=== PATIENT | male | born 1945 | race Caucasian/White ===

== ENCOUNTER → 2016-05-06 | Outpatient (CLI) | payer OTHER | LOC: FIMAGING 15:50 | PROVIDERS: ATTEND Neurological Surgery | DX: M54.5 Low back pain (principal); M54.16 Radiculopathy, lumbar region; M48.06 Spinal stenosis, lumbar region; M51.36 Other intervertebral disc degeneration, lumbar region; M12.9 Arthropathy, unspecified ==

== ENCOUNTER 2016-07-22 05:51 | Inpatient (IN) | payer OTHER ==
[2016-07-01 10:40] LABS: % IMMATURE GRANULYOCYTES 0.3 % (0.0-1.1); ABSOLUTE IMMATURE GRANULOCYTES 0.02 10^3/uL (0.00-0.10); ADD DIFF? NO; ADD MORPH? NO; ADD SCAN? NO; ATYPICAL LYMPHOCYTE FLAG 0 (0-99); FRAGMENT RBC FLAG 0 (0-99); HEMATOCRIT 47.6 % (40.0-51.0); HEMOGLOBIN 16.1 g/dL (13.7-17.5); LEFT SHIFT FLG 0 (0-99); LIPEMIA HEMOLYSIS FLAG 90 (0-99); MEAN CELL HEMOGLOBIN 30.8 pg (27.9-34.1); MEAN CELL HEMOGLOBIN CONCENTR. 33.8 g/dL (32.4-36.7); PLATELET CLUMPS FLAG 0 (0-99); PLATELET COUNT 253 10^3/uL (150-400); RED BLOOD CELL COUNT 5.23 10^6/uL (4.40-6.38); RED CELL DISTRIBUTION WIDTH 13.3 % (11.5-15.2)
[2016-07-22] MEDS ORDERED: LIDOCAINE 1% 2 ML INJ ONE (05:54)
[2016-07-22] MEDS ORDERED: ceFAZolin 2 GM/DEXTROSE 100 ML IV ONE (06:00)
[2016-07-22] MEDS ORDERED: CHLORHEXIDINE GLUC HIBICLENS 118 ML BTL TP ONE (06:00)
[2016-07-22] MEDS ORDERED: ONDANSETRON 4 MG/2 ML VIAL IVP PRN (07:15)
[2016-07-22] MEDS ORDERED: diphenhydrAMINE 25 MG CAP PO PRN (07:15)
[2016-07-22] MEDS ORDERED: BUPIVACAINE/EPI 0.25% 30 ML SDV ONE (07:15)
[2016-07-22] MEDS ORDERED: NS W/ 20 KCl/L 1,000 ML IV SCH (07:15)
[2016-07-22] MEDS ORDERED: NALOXONE HCL 0.4 MG/ML INJ IVP PRN (07:15)
[2016-07-22] MEDS ORDERED: ACETAMINOPHEN 325 MG TAB PO PRN (07:15)
[2016-07-22] MEDS ORDERED: MAGNESIUM HYDROXIDE 30 ML UDCUP PO PRN (07:15)
[2016-07-22] MEDS ORDERED: BACITRACIN 50,000 UNITS/10 ML SYR IRR ONE (07:15)
[2016-07-22] MEDS ORDERED: ONDANSETRON DISINTEGRATING 4 MG TAB PO PRN (07:15)
[2016-07-22] MEDS ORDERED: HYDROmorphONE/DILAUDID 6 MG/30 ML PCA IV PRN (07:15)
[2016-07-22] MEDS ORDERED: BISACODYL 10 MG SUPP PR PRN (07:15)
[2016-07-22] MEDS ORDERED: DIAZEPAM 10 MG/2 ML SYR IVP PRN (07:15)
[2016-07-22] MEDS ORDERED: oxyCODONE IR 5 MG TAB PO PRN (07:15)
[2016-07-22] MEDS ORDERED: THROMBIN (BOVINE) 5,000 UNIT VIAL TP ONE (07:15)
[2016-07-22] MEDS ORDERED: TEMAZEPAM 15 MG CAP PO PRN (07:15)
[2016-07-22] MEDS ORDERED: HYDROmorphONE/DILAUDID 1 MG/ML SYR IVP PRN (07:15)
[2016-07-22] MEDS ORDERED: LACTULOSE 20 GM/30 ML UDCUP PO PRN (07:15)
[2016-07-22] MEDS ORDERED: POLYETHYLENE GLYCOL 3350 17 GM PKT PO PRN (07:15)
[2016-07-22] MEDS ORDERED: PROPOFOL/EMULSION 500 MG/50 ML BOTTLE IV ONE ×2 (07:19→09:42)
[2016-07-22] MEDS ORDERED: fentaNYL 100 MCG/2 ML INJ ONE ×3 (07:19→12:01)
[2016-07-22] MEDS ORDERED: REMIFENTANIL HCL 1 MG VIAL ONE ×2 (07:19→09:42)
[2016-07-22] MEDS ORDERED: DEXAMETHASONE 4 MG/ML VIAL ONE ×2 (07:22)
[2016-07-22] MEDS ORDERED: ROCURONIUM 50 MG/5 ML VIAL ONE (07:22)
[2016-07-22] MEDS ORDERED: MIDAZOLAM 2 MG/2 ML VIAL ONE (07:26)
[2016-07-22] MEDS ORDERED: LIDOCAINE 2% 100 MG/5 ML SYR ONE (07:36)
[2016-07-22] MEDS ORDERED: ALBUMIN 5% 250 ML BOTTLE IV ONE ×2 (07:46)
[2016-07-22] MEDS ORDERED: HYDROmorphONE/DILAUDID 2 MG/ML INJ ONE (10:44)
[2016-07-22] MEDS ORDERED: ONDANSETRON 4 MG/2 ML VIAL ONE (11:14)
[2016-07-22] MEDS ORDERED: HYDROmorphONE/DILAUDID 1 MG/ML SYR ONE (12:01)
--- NOTE | 2016-07-22 12:36 | SOAPPROG ---
SOAP Progress Note Assessment/Plan: Post Op Visit: S: Awake and alert. Pt with expected lower back pain O: AFVSS/PERRLA/EOMI no droop CN 2-12 grossly intact 5/5 BUE/BLE = except right EHL at 4+/5 +cms/nv intact x [address] and working A/P: 71 yo male that is s/p TLIF at L4/5 and L5/S1 -orders in place -call with any questions or concerns -take medications as directed -Pt seen by Dr Knott as well -brace when out of bed 07/22/16 12:33 Objective: Vital Signs Temp Pulse Resp BP Pulse Ox 36.4 C 88 12 132/74 H 99 07/22/16 12:12 07/22/16 12:12 07/22/16 12:17 07/22/16 12:17 07/22/16 12:17 Laboratory Results 07/01/16 10:21 07/21/16 07/22/16 07/23/16 05:59 05:59 05:59 Intake Total 1830 Output Total 800 Balance 1030 ICD10 Worksheet Patient Problems: Problems Problem Status Onset Lumbosacral stenosis Acute Arthrodesis status Acute Lumbar radiculitis Acute - ICD10 Problem Qualifiers (1) Lumbar radiculitis (2) Arthrodesis status
[2016-07-22] MEDS: GABAPENTIN 300 MG CAP PO SCH ×3 (12:57→22:08)
[2016-07-22] MEDS: FAMOTIDINE 20 MG/NACL 50 ML IV SCH ×2 (12:57→19:44)
[2016-07-22] MEDS: morphINE SR 15 MG TAB PO SCH ×2 (12:57→19:45)
[2016-07-22] MEDS: SENNOSIDES/DOCUSATE SODIUM TAB PO SCH ×2 (12:58→19:44)
[2016-07-22] MEDS: ATORVASTATIN CALCIUM 40 MG TAB PO SCH (13:32)
[2016-07-22] MEDS: FAMOTIDINE 20 MG TAB PO SCH (13:32)
--- NOTE | 2016-07-22 13:33 | GOP ---
[f rep st] OPERATIVE REPORT DATE OF OPERATION: 07/22/2016 SURGEON: Karen Knott MD MATERIALS MANAGEMENT CLERK: Ron Benoit PA-C. PREOPERATIVE DIAGNOSIS: 1. Lumbar degenerative disk disease L4-L5, L5-S1. 2. Recurrent lumbar disk herniation at L4-L5, chronic right L5 radiculopathy. 3. Failed back syndrome. POSTOPERATIVE DIAGNOSIS: 1. Lumbar degenerative disk disease L4-L5, L5-S1. 2. Recurrent lumbar disk herniation at L4-L5, chronic right L5 radiculopathy. 3. Failed back syndrome. PROCEDURE PERFORMED: 1. Posterolateral intervertebral arthrodesis with decompression and fusion of the intervertebral sp hakan and posterolateral space at L4-L5, L5-S1 ([id number], [id number]). 2. Posterior segmental instrumentation L4,L5, S1. 3. Same incision bone graft harvest. 4. Microscope, fluoroscopy and spinal stereotaxy. 5. Placement of biomechanical intervertebral device L4-L5, L5-S1. FINDINGS: ESTIMATED BLOOD LOSS: 300 cc. INDICATIONS: The patient is a 71-year-old gentleman with a prior history of multiple spinal operati ons on the lumbar spine. He had another recurrent disk on the right at L4-L5 in an area where he lyon d a previous laminotomy. Long history of chronic right L5 radiculopathy and weakness in the right f oot and I suggested 2-level surgery including stabilization, decompression and fusion, but he unders tood there was a risk of continued symptoms. He also knew there was risk of adjacent segment diseas e, nerve injury, spinal fluid leak, current hardware failure and malposition. He accepted these risk s. He wanted to proceed. DESCRIPTION OF PROCEDURE: Patient was taken to the operating room, placed in the supine position. General anesthesia was begun. He was flipped prone onto the Gurdeep table. Care was taken to pad a ll points of contact. His left arm was put in the normal place up above his head, adjacent to the J ackson table. The right arm really would not extend or abduct above the shoulder level itself. We therefore elected to change arm board and place the right arm down under the table where it was secu red in place. He was sterilely prepped and draped in the usual fashion. A localizing x-ray was not necessary. He had a prior incision on the back. We opened the prior incision and the subcutaneous tissue was d issected using Bovie cautery down to the fascia and a subperiosteal dissection was made down to the inferior lamina of L3. The lamina of L4, L5, and S1 were exposed. The self-retaining retractor was placed. We denuded the bilateral hypertrophic facet joints at L4-L5 and L5-S1 and tested Stealth re ference frame and using frameless Stealth stereotaxy placed the pedicle screws bilaterally at L4, L5, and the sacrum. They all stimulated at acceptable l evels. We then performed an O-arm spin, confirmed the 3D position of the screws within the pedicles . There was no breach of the surrounding disk spaces or the pedicles themselves. We placed 70 mm rods down over the screws, distracted between L4-L5 and S1 and locked them in place. We then removed all soft tissue, bone at L4-L5, S1. We decorticated the facet joints bilaterally at L4-L5 and 5-1 to create an arthrodesis. We then performed a right redo hemilaminectomy L4-L5 and L5-S1. There was significant scar tissue. We were able to drill down adjacent to the dura and then flake the bone off the dura. The dissection did take longer than was normal because it was a redo case and took quite an amount of work under the operating microscope to clean up the right-side at L 4-L5, 5-1. At the L4-L5 level we mobilized the L5 nerve root, swept it medially and there was a disk prolapse a t the L4-L5 level. We reduced this down into the L4-L5 disk where it was removed. We incised the d isk, removed the disk and the cartilaginous endplates to create arthrodesis at that level. We then turned our attention to L5-S1 where we incised the disk, removed the disk and the cartilaginous endp lates. We roughened the subchondral bone to create arthrodesis at L5-S1. We placed implant trials into position. At both levels a 28 mm device was chosen. We chose a 9 mm for L4-L5 and a 7 mm for L5-S1. We placed bone morphogenic protein and bone autograft into the disk spaces and used a total of 2.0 mg of BMP on the entire surgery. We placed 1 mg of this into the spine and the other 1 mg wa s placed posterolaterally. We inserted our devices under fluoroscopic guidance, expanded them under fluoroscopic guidance and t hen shot a final x-ray. We decorticated all remaining visible bone, placed bony allograft and BMP p osterolaterally bilaterally and then attached the subfascial drain and then closed the incision in m ultiple layers using Vicryl sutures. Steri-Strips were applied to the skin. The patient was revers ed from anesthesia, extubated, and transferred to recovery room in stable condition. COMPLICATIONS: None. /[id number]/MODL
[2016-07-22] MEDS: HYDROCODONE/APAP 10/325 TAB PO PRN (13:34)
[2016-07-22] MEDS: DIAZEPAM 5 MG TAB PO PRN ×2 (16:21→22:10)
[2016-07-23 05:13] LABS: % IMMATURE GRANULYOCYTES 0.5 % (0.0-1.1); ABSOLUTE IMMATURE GRANULOCYTES 0.06 10^3/uL (0.00-0.10); ADD DIFF? NO; ADD MORPH? NO; ADD SCAN? NO; ATYPICAL LYMPHOCYTE FLAG 0 (0-99); FRAGMENT RBC FLAG 0 (0-99); HEMATOCRIT 35.5 % (40.0-51.0); HEMOGLOBIN 12.1 g/dL (13.7-17.5); LEFT SHIFT FLG 0 (0-99); LIPEMIA HEMOLYSIS FLAG 90 (0-99); MEAN CELL HEMOGLOBIN 31.2 pg (27.9-34.1); MEAN CELL HEMOGLOBIN CONCENTR. 34.1 g/dL (32.4-36.7); MEAN CELL VOLUME 91.5 fL (81.5-99.8); MEAN PLATELET VOLUME 9.4 fL (8.7-11.7); PLATELET CLUMPS FLAG 0 (0-99); PLATELET COUNT 223 10^3/uL (150-400); RED BLOOD CELL COUNT 3.88 10^6/uL (4.40-6.38); RED CELL DISTRIBUTION WIDTH 13.2 % (11.5-15.2)
[2016-07-23 05:29] LABS: ANION GAP 7 mEq/L (8-16); CALCIUM 8.4 mg/dL (8.5-10.4); CARBON DIOXIDE 26 mEq/l (22-31); CHLORIDE 105 mEq/L (97-110); CREATININE 0.9 mg/dL (0.7-1.3); GLOMERULAR FILTRATION RATE > 60; GLUCOSE 119 mg/dL (70-100); POTASSIUM 4.5 mEq/L (3.5-5.2); SODIUM 138 mEq/L (134-144)
[2016-07-23] MEDS: HYDROCODONE/APAP 10/325 TAB PO PRN ×2 (05:50→19:51)
--- NOTE | 2016-07-23 07:16 | NEUSURGPN ---
Date of Surgery: 07/22/16 Post Op Day: 1 Assessment/Plan: Assessment: 71 yo male that is s/p TLIF at L4/5 and L5/S1 POD #1 Plan: -s/p L4-S1 fusion: pt states has expected lower back pain but legs feel good -post op xrays pending -brace when out of bed -PT/OT ordered -SOPHIA in place -IV->PO meds -call with any questions or concerns -take medications as directed -Pt seen by Dr Knott as well -plan for dc in 1-2 days 07/22/16 12:33 Subjective: Awake and alert. NAD. Eating/drinking and voiding. No f/c/n/v/d. No lyon/neck/ chest/abd or gu complaints. Objective: AFVSS/PERRLA/EOMI no droop CN 2-12 grossly intact 5/5 BUE/BLE = except right EHL at 4+/5 +cms/nv intact x [address] and working Neuro Check Frequency: per routine Urinary Catheter in Place: No Catheter Insertion Date: 07/22/16 - Physician Discussed Patient with : Nikos Patient Seen by : Nikos Neurosurgery Physical Exam - Vitals, I&O, Labs I and O 07/22/16 07/23/16 07/24/16 05:59 05:59 05:59 Intake Total 2433 Output Total 1895 Balance 538 Weight 83.915 kg Intake: Oral (ml) 330 IV Intake (ml) 1820 IV Infused (ml) 283 NS W/ 20 KCl/L 1,000 ml @ 233 75 mls/hr IV CONT MANPREET Rx #:[id number] ceFAZolin 1 GM/DEXTROSE 50 50 ml @ 200 mls/hr IV Q8HRS MANPREET Rx#:[id number] Output: Urine (ml) 1350 Catheter 1350 Estimated Blood Loss (ml) 300 Wound Drainage (ml) 245 Left Back Gurdeep Corral 245 Other: Intake Quantity Yes Sufficient Vital Signs Temp Pulse Resp BP Pulse Ox 36.6 C 57 L 16 107/58 L 98 07/23/16 04:00 07/23/16 04:00 07/23/16 04:00 07/23/16 04:00 07/23/16 04:00 Laboratory Results 07/23/16 04:10 07/23/16 04:10 ICD10 Worksheet Patient Problems: Problems Problem Status Onset Arthrodesis status Acute Lumbar radiculitis Acute Lumbosacral stenosis Acute - ICD10 Problem Qualifiers (1) Lumbar radiculitis (2) Arthrodesis status
[2016-07-23] MEDS: morphINE SR 15 MG TAB PO SCH ×2 (08:02→21:23)
[2016-07-23] MEDS: ATORVASTATIN CALCIUM 40 MG TAB PO SCH (08:02)
[2016-07-23] MEDS: SENNOSIDES/DOCUSATE SODIUM TAB PO SCH ×2 (08:03→21:23)
[2016-07-23] MEDS: GABAPENTIN 300 MG CAP PO SCH ×3 (08:03→21:22)
[2016-07-23] MEDS: FAMOTIDINE 20 MG/NACL 50 ML IV SCH (08:45)
[2016-07-23] MEDS: FAMOTIDINE 20 MG TAB PO SCH ×2 (18:08→21:23)
[2016-07-23] MEDS: DIAZEPAM 5 MG TAB PO PRN (19:51)
[2016-07-24] MEDS: HYDROCODONE/APAP 10/325 TAB PO PRN ×3 (04:34→12:03)
[2016-07-24] MEDS: SENNOSIDES/DOCUSATE SODIUM TAB PO SCH (09:31)
[2016-07-24] MEDS: ATORVASTATIN CALCIUM 40 MG TAB PO SCH (09:32)
[2016-07-24] MEDS: morphINE SR 15 MG TAB PO SCH (09:33)
[2016-07-24] MEDS: FAMOTIDINE 20 MG TAB PO SCH (09:33)
[2016-07-24] MEDS: GABAPENTIN 300 MG CAP PO SCH ×2 (09:33→14:11)
[2016-07-24] MEDS: METHOCARBAMOL 750 MG TAB PO PRN ×2 (09:40→12:04)
--- NOTE | 2016-07-24 10:37 | NEUSURGPN ---
Assessment/Plan: Assessment: 71 yo male that is s/p TLIF at L4/5 and L5/S1 POD #2 Plan: -s/p L4-S1 fusion: pt states has expected lower back pain but legs feel good -post op xrays show stable hardware -brace when out of bed -PT/OT ordered -SOPHIA when OOB -Continue PO pain meds -call with any questions or concerns -take medications as directed -Pt d/w Dr Knott as well -DC to home today -Call NS with any issues Subjective: Pt resting at edge of bed, wants to DC today. Objective: AAOx3 NAD VSS MAEx4 Motor 5/5 BLE Incision dressed cdi Brace on +LT Urinary Catheter in Place: No Catheter Insertion Date: 07/22/16 - Physician Discussed Patient with : Nikos Neurosurgery Physical Exam - Vitals, I&O, Labs I and O 07/23/16 07/24/16 07/25/16 05:59 05:59 05:59 Intake Total 2433 2200 Output Total 1895 1430 Balance 538 770 Weight 83.915 kg Intake: Oral (ml) 330 2200 IV Intake (ml) 1820 IV Infused (ml) 283 NS W/ 20 KCl/L 1,000 ml @ 233 75 mls/hr IV CONT MANPREET Rx #:[id number] ceFAZolin 1 GM/DEXTROSE 50 50 ml @ 200 mls/hr IV Q8HRS MANPREET Rx#:[id number] Output: Urine (ml) 1350 1300 Catheter 1350 Urinal 1300 Estimated Blood Loss (ml) 300 Wound Drainage (ml) 245 130 Left Back Gurdeep Corral 245 130 Other: Intake Quantity Yes Yes Sufficient Number of Voids Urinal 1 Vital Signs Temp Pulse Resp BP Pulse Ox 37.0 C 71 14 110/64 94 07/24/16 07:30 07/24/16 07:30 07/24/16 07:30 07/24/16 07:30 07/24/16 07:30 Laboratory Results 07/23/16 04:10 07/23/16 04:10 ICD10 Worksheet Patient Problems: Problems Problem Status Onset Arthrodesis status Acute Lumbar radiculitis Acute Lumbosacral stenosis Acute
[2016-07-24 11:58] VITALS: BP 117/58; RESP 16; TEMP 100.6
[2016-07-24 12:14] VITALS: PULSE 69; O2SAT 90
[2016-07-25] MEDS ORDERED: ENOXAPARIN 40 MG/0.4 ML SYR SC SCH (09:00)
== END 2016-07-24 15:40 | disposition home or self-care (01) | DRG 460 ==
LOC: F3N 05:51
PROVIDERS: ADMIT Neurological Surgery; ATTEND Neurological Surgery
PROC: 00NY0ZZ Release Lumbar Spinal Cord, Open Approach (ICD-10-PCS; principal; 2016-07-22 07:30)
PROC: 0SG00AJ Fusion of Lumbar Vertebral Joint with Interbody Fusion Device, Posterior Approach, Anterior Column, Open Approach (ICD-10-PCS; principal; 2016-07-22 07:30)
PROC: 0SG3071 Fusion of Lumbosacral Joint with Autologous Tissue Substitute, Posterior Approach, Posterior Column, Open Approach (ICD-10-PCS; principal; 2016-07-22 07:30)
PROC: 0SB20ZZ Excision of Lumbar Vertebral Disc, Open Approach (ICD-10-PCS; principal; 2016-07-22 07:30)
PROC: 0SB40ZZ Excision of Lumbosacral Disc, Open Approach (ICD-10-PCS; principal; 2016-07-22 07:30)
PROC: 3E0U0GB Introduction of Recombinant Bone Morphogenetic Protein into Joints, Open Approach (ICD-10-PCS; principal; 2016-07-22 07:30)
PROC: 0SG1071 Fusion of 2 or more Lumbar Vertebral Joints with Autologous Tissue Substitute, Posterior Approach, Posterior Column, Open Approach (ICD-10-PCS; principal; 2016-07-22 07:30)
PROC: 0SG30AJ Fusion of Lumbosacral Joint with Interbody Fusion Device, Posterior Approach, Anterior Column, Open Approach (ICD-10-PCS; principal; 2016-07-22 07:30)
DX: M51.16 Intervertebral disc disorders with radiculopathy, lumbar region (principal); M48.06 Spinal stenosis, lumbar region; M21.371 Foot drop, right foot
CPT/HCPCS: 97116-GP; 97161-GP; 97165-GO; C1713; G8978-GP-CJ; G8979-GP-CI; G8980-GP-CI; G8987-GO-CI; G8988-GO-CI; G8989-GO-CI; J0690; J1100; J1170; J2001; J2250; J2405; J2704; J3010; P9041

== ENCOUNTER 2016-08-18 12:09 | Emergency (ER) | payer OTHER ==
--- NOTE | 2016-08-18 14:56 | EDPHY ---
H & P Stated Complaint: SOB and dry mouth on and off for 5 days Time Seen by Provider: 08/18/16 14:55 HPI/ROS: CHIEF COMPLAINT: Dyspnea HISTORY OF PRESENT ILLNESS: The patient presents to the ED with symptoms orthopnea and dyspnea increasing over the past several days. The patient reports he had back surgery on July 22 which uncomplicated. He has been recovering well at home and wound his narcotic over the past week. The patient has no history of acute coronary syndrome, pulmonary embolism, hypertension or other significant past medical history. The patient denies any history of exertional chest pain. The patient denies pleuritic chest pain. The patient denies any additional acute complaints. A comprehensive 10 point review of systems is otherwise negative aside from elements mentioned in the history of present illness. Source: Patient - Personal History Current Tetanus/Diphtheria Vaccine: Yes Current Tetanus Diphtheria and Acellular Pertussis (TDAP): Yes Tetanus Vaccine Date: < 10 years - Medical/Surgical History Hx Asthma: No Hx Chronic Respiratory Disease: No Hx Diabetes: No Hx Cardiac Disease: No Hx Renal Disease: No Hx Cirrhosis: No Hx Alcoholism: No Hx HIV/AIDS: No Hx Splenectomy or Spleen Trauma: No Other PMH: back surgery 30 years ago, neck surgery , hypercholesterol, sciatic nerve pain - Social History Smoking Status: Former smoker - Physical Exam Exam: General Appearance: Alert, no distress Eyes: Pupils equal and round no pallor or injection ENT, Mouth: Mucous membranes moist Respiratory: There are no retractions, lungs are clear to auscultation Cardiovascular: Regular rate and rhythm Gastrointestinal: Abdomen is soft and nontender, no masses, bowel sounds normal Neurological: A&O, normal motor function, normal sensory exam, normal cranial nerves Skin: Warm and dry, no rashes Musculoskeletal: Neck is supple nontender Extremities: symmetrical, full range of motion Constitutional: Initial Vital Signs Temperature (C) 36.6 C 08/18/16 12:13 Heart Rate 55 L 08/18/16 12:13 Respiratory Rate 18 08/18/16 12:13 Blood Pressure 141/69 H 08/18/16 12:13 O2 Sat (%) 96 08/18/16 12:13 O2 Delivery Mode Room Air Allergies/Adverse Reactions: Penicillins Allergy (Intermediate, Verified 08/18/16 12:12) Rash Home Medications: Medication Instructions Recorded Atorvastatin Calcium [Lipitor 40 40 mg PO DAILY 06/11/16 mg (*)] Gabapentin [Neurontin 300 MG (*)] 600 mg PO TID 06/11/16 Ranitidine HCl [Zantac] 300 mg PO DAILY@12 06/11/16 Diazepam [Valium 5 MG (*)] 5 mg PO TID PRN #60 tab 07/24/16 HYDROcodone/APAP 10/325 [[place] 1 - 2 tab PO Q6HRS PRN #90 tab 07/24/16 10/325 (*)] Methocarbamol [Robaxin 750 mg (*)] 750 mg PO QID PRN #60 tab 07/24/16 Ondansetron Odt [Zofran Odt 4 mg 4 mg PO Q6-8PRN PRN #60 tab 07/24/16 (*)] morphINE SR [Ms Contin/Oramorph 15 15 mg PO BID #30 tab 07/24/16 mg (*)] Medical Decision Making - Diagnostics EKG Interpretation: EKG: Complete interpretation has been separately recorded in the [employer] ([employer] archive. Summary impression: Sinus rhythm Imaging Results: Imaging Impressions Chest X-Ray 08/18/16 15:12 Impression: Query mild airways disease with no superimposed acute abnormality identified. CT pulmonary angiogram: Images reviewed by myself and discussed with radiologist Dr. Micky Thibodeaux, negative for pulmonary embolism, heart failure or pneumonia. No explanation for dyspnea is noted on the study. ED Course/Re-evaluation: The patient presents to the ED for evaluation of intermittent orthopnea and dyspnea. The patient's symptoms have been occurring over the past several days. He recently has been tapering his narcotic pain medications following back surgery. Patient was noted to have a nonischemic EKG upon arrival. The patient's troponin is also noted to be within normal limits. Clinically the patient has no evidence of significant congestive heart failure and his proBNP level is also within normal limits. Given the patient's recent spinal surgery, a D-dimer was checked and found to be elevated at 1.36. Fortunately CT pulmonary angiogram demonstrates no evidence of PE, dissection, heart failure or pneumonia. The patient had multiple examinations in the ED by myself over a 2 hour period. At this point time I see no evidence of an obvious myocardial infarction, pulmonary embolism, pneumonia or heart failure. I do feel the patient can be discharged home and follow up with Cardiology for any ongoing symptoms. The patient will be discharged home with customary aftercare instructions and return precautions. Differential Diagnosis: Differential diagnosis considered includes congestive heart failure, pulmonary embolism, critical anemia, metabolic abnormality, myocardial infarction, arrhythmia - Data Points Laboratory Results: Laboratory Results 08/18/16 15:24 08/18/16 15:24 08/18/16 08/18/16 08/18/16 15:24 15:24 15:24 WBC 4.95 10^3/uL 10^3/uL (3.80-9.50) RBC 4.53 10^6/uL 10^6/uL (4.40-6.38) Hgb 13.5 g/dL L g/dL (13.7-17.5) Hct 41.3 % % (40.0-51.0) MCV 91.2 fL fL (81.5-99.8) MCH 29.8 pg pg (27.9-34.1) MCHC 32.7 g/dL g/dL (32.4-36.7) RDW 12.5 % % (11.5-15.2) Plt Count 337 10^3/uL 10^3/uL (150-400) MPV 9.1 fL fL (8.7-11.7) Neut % (Auto) 52.9 % % (39.3-74.2) Lymph % (Auto) 37.4 % % (15.0-45.0) [place] % (Auto) 8.1 % % (4.5-13.0) Eos % (Auto) 1.0 % % (0.6-7.6) Baso % (Auto) 0.4 % % (0.3-1.7) Nucleat RBC Rel Count 0.0 % % (0.0-0.2) Absolute Neuts (auto) 2.62 10^3/uL 10^3/uL (1.70-6.50) Absolute Lymphs (auto) 1.85 10^3/uL 10^3/uL (1.00-3.00) Absolute Monos (auto) 0.40 10^3/uL 10^3/uL (0.30-0.80) Absolute Eos (auto) 0.05 10^3/uL 10^3/uL (0.03-0.40) Absolute Basos (auto) 0.02 10^3/uL 10^3/uL (0.02-0.10) Absolute Nucleated RBC 0.00 10^3/uL 10^3/uL (0-0.01) Immature Gran % 0.2 % % (0.0-1.1) Immature Gran # 0.01 10^3/uL 10^3/uL (0.00-0.10) D-Dimer 1.67 ug/mLFEU H ug/mLFEU (0.00-0.50) Sodium 142 mEq/L mEq/L (134-144) Potassium 4.0 mEq/L mEq/L (3.5-5.2) Chloride 104 mEq/L mEq/L (97-110) Carbon Dioxide 28 mEq/l mEq/l (22-31) Anion Gap 10 mEq/L mEq/L (8-16) BUN 13 mg/dL mg/dL (7-23) Creatinine 0.8 mg/dL mg/dL (0.7-1.3) Estimated GFR > 60 Glucose 93 mg/dL mg/dL (70-100) Calcium 9.4 mg/dL mg/dL (8.5-10.4) Troponin I < 0.012 ng/mL ng/mL (0-0.034) NT-Pro-B Natriuret Pep 244 pg/mL H pg/mL (0-125) Departure - Departure Disposition: Home, Routine, Self-Care Clinical Impression: Acute dyspnea, Orthopnea Condition: Good Instructions: Dyspnea (ED) Additional Instructions: 1. The testing done in the emergency department today demonstrates no evidence of a heart attack, blood clot, pneumonia or heart failure. There is no obvious explanation of your shortness of breath. It certainly could be related to your tapering of pain medications. 2. Please return to the ED immediately for any worsening symptoms, difficulty breathing or other concerns. 3. Please schedule a follow-up appointment with your primary care provider for a recheck in the next week. If you continue to have ongoing intermittent symptoms I also recommend following up with Cardiology. You have been given the number of our on-call mop maker to schedule a follow-up visit with if needed. Referrals: Yahir Sunshine MD [Primary Care Provider] - As per Instructions Robb Marmolejo MD [Medical Doctor] - As per Instructions
--- NOTE | 2016-08-18 15:18 | CPEKG ---
Heart Rate: 52 RR Interval: 1154 P-R Interval: 220 QRSD Interval: 82 QT Interval: 464 QTC Interval: 432 P Pana: 39 QRS Pana: 24 T Wave Pana: 34 EKG Severity - ABNORMAL ECG - EKG Impression: SINUS RHYTHM Electronically Signed By: Marc Birch 18-Aug-2016 16:11:01
[2016-08-18 15:35] LABS: % IMMATURE GRANULYOCYTES 0.2 % (0.0-1.1); ABSOLUTE IMMATURE GRANULOCYTES 0.01 10^3/uL (0.00-0.10); ADD DIFF? NO; ADD MORPH? NO; ADD SCAN? NO; ATYPICAL LYMPHOCYTE FLAG 0 (0-99); FRAGMENT RBC FLAG 0 (0-99); HEMATOCRIT 41.3 % (40.0-51.0); HEMOGLOBIN 13.5 g/dL (13.7-17.5); LEFT SHIFT FLG 0 (0-99); LIPEMIA HEMOLYSIS FLAG 80 (0-99); MEAN CELL HEMOGLOBIN 29.8 pg (27.9-34.1); MEAN CELL HEMOGLOBIN CONCENTR. 32.7 g/dL (32.4-36.7); MEAN CELL VOLUME 91.2 fL (81.5-99.8); MEAN PLATELET VOLUME 9.1 fL (8.7-11.7); PLATELET CLUMPS FLAG 10 (0-99); PLATELET COUNT 337 10^3/uL (150-400); RED BLOOD CELL COUNT 4.53 10^6/uL (4.40-6.38); RED CELL DISTRIBUTION WIDTH 12.5 % (11.5-15.2)
[2016-08-18 15:56] LABS: ANION GAP 10 mEq/L (8-16); CALCIUM 9.4 mg/dL (8.5-10.4); CARBON DIOXIDE 28 mEq/l (22-31); CHLORIDE 104 mEq/L (97-110); CREATININE 0.8 mg/dL (0.7-1.3); GLOMERULAR FILTRATION RATE > 60; GLUCOSE 93 mg/dL (70-100); SODIUM 142 mEq/L (134-144)
[2016-08-18 16:03] LABS: TROPONIN I < 0.012 ng/mL (0-0.034)
[2016-08-18] MEDS ORDERED: IOPAMIDOL (ISOVUE 370) 100 ML BTL IV ONE (16:47)
[2016-08-18 17:52] VITALS: BP 132/76; PULSE 60; RESP 16; TEMP 97.5; O2SAT 98
== END 2016-08-18 17:51 | disposition home or self-care (01) ==
DX: R06.01 Orthopnea (principal); Z87.891 Personal history of nicotine dependence
CPT/HCPCS: 71020; 71275; 93005; 99285; Q9967

== ENCOUNTER → 2016-09-24 | Outpatient (CLI) | payer OTHER | LOC: FIMAGING 10:54 | PROVIDERS: ATTEND Nurse Practitioner | DX: Z09 Encounter for follow-up examination after completed treatment for conditions other than malignant neoplasm (principal); Z98.1 Arthrodesis status ==

== ENCOUNTER → 2016-12-21 | Outpatient (CLI) | payer OTHER | LOC: FIMAGING 10:49 | PROVIDERS: ATTEND Nurse Practitioner | DX: Z09 Encounter for follow-up examination after completed treatment for conditions other than malignant neoplasm (principal); Z98.1 Arthrodesis status ==

== ENCOUNTER → 2017-04-27 | Outpatient (CLI) | payer OTHER | LOC: FIMAGING 10:37 | PROVIDERS: ATTEND Nurse Practitioner | DX: Z98.1 Arthrodesis status (principal) ==

== ENCOUNTER → 2017-06-29 | Outpatient (CLI) | payer OTHER | LOC: BMCIMAGING 10:36 | PROVIDERS: ATTEND Internal Medicine Rheumatology | DX: M25.551 Pain in right hip (principal); M25.552 Pain in left hip; Z98.1 Arthrodesis status ==

== ENCOUNTER → 2018-02-09 | Outpatient (CLI) | payer OTHER | LOC: BMCIMAGING 14:13 | PROVIDERS: ATTEND Internal Medicine Rheumatology | DX: M25.511 Pain in right shoulder (principal); M25.512 Pain in left shoulder; M19.011 Primary osteoarthritis, right shoulder; M19.012 Primary osteoarthritis, left shoulder ==

== ENCOUNTER → 2018-07-26 | Outpatient (CLI) | payer OTHER | LOC: FIMAGING 09:45 | PROVIDERS: ATTEND Neurological Surgery | DX: M43.16 Spondylolisthesis, lumbar region (principal); M47.26 Other spondylosis with radiculopathy, lumbar region; Z98.1 Arthrodesis status ==